=== PATIENT | male | born 1995 | race Two or more races ===

== ENCOUNTER 2019-11-23 04:16 | Emergency (ER) | payer OTHER ==
[~2019-11-23] VITALS: Ht 185.4 cm; Wt 105.0 kg
[2019-11-23 04:21] VITALS: BP 151/57
[2019-11-23] MEDS ORDERED: MORPHINE SULFATE 4 MG/ML, 1ML ONE (04:25)
[2019-11-23] MEDS ORDERED: ONDANSETRON 2MG/ML, 2ML ONE (04:25)
[2019-11-23] MEDS ORDERED: CEFAZOLIN PMX 1GM/50ML 0 ML ONE (04:29)
[2019-11-23] MEDS ORDERED: SODIUM CHLORIDE FLUSH 10ML SYR IVF ONE (04:30)
[2019-11-23] MEDS ORDERED: MORPHINE SULFATE 4 MG/ML, 1ML IVPush PRN (04:30)
[2019-11-23] MEDS ORDERED: SODIUM CHLORIDE 0.9% 1,000ML IVBOLUS ONE (04:30)
[2019-11-23] MEDS ORDERED: ONDANSETRON 2MG/ML, 2ML IVPush ONE (04:30)
--- NOTE | 2019-11-23 04:33 | NUR ---
ASSESSMENT MADE. XRAY DONE. IVX 2 PLACED. ANXIOUS. + PEDAL PULSES, RIGHT THIGH DEFORMITY NOTED.
--- NOTE | 2019-11-23 04:46 | NUR ---
[facility] HERE TO TAKE PATIENT TO [facility]. REPORT GIVEN TO MARY PADILLA.
== END 2019-11-23 04:53 | disposition short-term general hospital (02) ==
LOC: ED 04:43
DX: S72.401C Unspecified fracture of lower end of right femur, initial encounter for open fracture type IIIA, IIIB, or IIIC (principal); X93.XXXA Assault by handgun discharge, initial encounter; Y93.89 Activity, other specified; Y92.89 Other specified places as the place of occurrence of the external cause; Y99.8 Other external cause status
CPT/HCPCS: 73560; 96374; 96375; 99291; J2270; J2405; J7030